=== PATIENT | female | born 1950 | race Caucasian/White ===

== ENCOUNTER 2018-02-22 11:43 | Outpatient (CLI) | payer MEDICARE, OTHER ==
[2018-02-22 12:22] LABS: BASOPHILS % 0.3 (0.0-1.5); EOSINOPHILS % 0.4 % (0.0-6.8); MEAN CORPUSCULAR HEMOGLOBIN 30.5 pg (28.0-34.0); MONOCYTES % 5.1 % (0.0-11.0); NEUTROPHILS # 6.3 # k/uL (1.4-7.7)
[2018-02-22 12:36] LABS: eGFR (African) > 60; eGFR (Non-African) > 60
== END 2018-02-22 11:44 ==
LOC: LAB 11:43
PROVIDERS: ATTEND Nurse Practitioner Family
DX: R61 Generalized hyperhidrosis (principal); R59.9 Enlarged lymph nodes, unspecified; R63.4 Abnormal weight loss
CPT/HCPCS: 36415; 80053; 85025; 85651